=== PATIENT | male | born 1970 | race Two or more races ===

== ENCOUNTER 2025-05-17 20:01 | Inpatient (IN) | payer MEDICAID, SELFPAY ==
[2025-05-17 20:02] VITALS: BMI 21.9
[2025-05-17 20:43] VITALS: BP 108/72; PULSE 119; RESP 20; TEMP 36.8; O2SAT 97
--- NOTE | 2025-05-17 20:52 | XR_ITS ---
Examination: CT soft tissue neck, without contrast. 2-D sagittal reconstructions. 2-D coronal reconstructions. 3-D reconstructions. Date and time of exam: May 17, 2025, 2052 hours INDICATIONS: Redness swelling and pain on the back of the neck CTDI: vol (mGy): 13.50 DLP: (mGycm): 324 Technique: Multiple 1.25 mm axial sections of the marked soft tissue without contrast have been obtained. 2-D sagittal and coronal reconstructions have been obtained. 3-D reconstructions have been obtained. Low dose protocols were performed. One or more of the following dose reduction techniques were used; automated exposure control, adjustment of the mA and/or KV according to patient size, use of iterative reconstruction technique. Findings: Large area of soft tissue infection primarily in the subcutaneous fatty tissue posterior neck with adjacent skin thickening No fluid-filled drainable abscess Symmetrical nasopharynx oropharynx The larynx appears normal Epiglottis is not thickened No prevertebral soft tissue prominence IMPRESSION: Large area of soft tissue infection in the subcutaneous fatty tissue posterior neck with adjacent skin thickening No definite fluid-filled drainable abscess
--- NOTE | 2025-05-17 20:53 | XR_ITS ---
EXAMINATION: PA chest single view TECHNIQUE: Upright PA chest single view Date and time: May 17, 2025, 2055 hours INDICATIONS: Shortness of breath today. FINDINGS: Normal heart size The lungs are clear. The osseous structures are intact IMPRESSION: No active disease
[2025-05-17 21:40] LABS: Lactate (Lactic Acid) 1.8 mMol/L (0.4-2.0)
[2025-05-17 21:41] LABS: Basophils # (Auto) 0.2 Thou/mm3 (0.0-0.2); Basophils % (Auto) 1 % (0-2.5); Eosinophils # (Auto) 0.0 Thou/mm3 (0.0-0.5); Eosinophils % (Auto) 0 % (0-10); Hematocrit 45.5 % (41.0-53.0); Hemoglobin 16.0 g/dL (13.5-16.0); Immature Granulocytes Auto 0.44 Thou/mm3 (0.00-0.00); Lymphocytes # (Auto) 1.6 Thou/mm3 (1.0-4.8); Lymphocytes % (Auto) 6 % (10-50); Mean Corpuscular HGB Conc 35.2 g/dl (31.0-37.0); Mean Corpuscular Hemoglobin 31.6 pg (25.0-35.0); Mean Corpuscular Volume 90 fL (80-100); Monocytes # (Auto) 1.9 Thou/mm3 (0.0-0.8); Monocytes % (Auto) 7 % (0-12); Neutrophils # (Auto) 24.1 Thou/mm3 (1.8-7.7); Neutrophils % (Auto) 86 % (37-80); Nucleated Red Blood Cell # 0.00 Thou/mm3 (0.00-0.00); Nucleated Red Blood Cell % 0 /100 WBC (0); Platelet Count 536 Thou/mm3 (140-440); RDW Standard Deviation 38.1 fL (35.1-43.9); Red Blood Count 5.07 Miln/mm3 (4.50-5.90); White Blood Count 28.1 Thou/mm3 (3.8-10.6)
[2025-05-17 21:51] LABS: Glucose Estimated Average 349 mg/dL (80-131); Hemoglobin A1C 13.8 % Hgb (4.8-6.0)
[2025-05-17 22:22] LABS: Alanine Aminotransferase < 7 U/L (10-49); Albumin, Serum 3.9 gm/dL (3.5-5.0); Albumin/Globulin Ratio 1.2 (1.2-2.2); Alkaline Phosphatase 182 U/L (46-116); Anion Gap 10 (7-16); Aspartate Amino Transferase 11 U/L (0-34); BUN/Creatinine Ratio 10 Ratio (12-20); Bilirubin,Total 0.2 mg/dL (0.3-1.2); Blood Urea Nitrogen 11 mg/dL (9-23); Calcium 9.4 mg/dL (8.3-10.6); Calcium (Corrected) 9.5 mg/dL (8.5-10.1); Carbon Dioxide 29.0 mMol/L (20.0-31.0); Chloride 87 mMol/L (98-107); Creatine Kinase 45 U/L (34-171); Creatinine (Component) 1.1 mg/dL (0.6-1.3); Estimated Creatinine Clearance 68.2 mL/min (>60); Globulin 3.3 gm/dL (2.3-3.5); Magnesium 1.9 mg/dL (1.6-2.6); Potassium 4.2 mMol/L (3.4-5.1); Procalcitonin 0.32 ng/ml (0.0-0.49); Sodium 126 mMol/L (136-145); Thyroid Stimulating Hormone 0.86 uIU/mL (0.55-4.78); Total Protein 7.2 gm/dL (5.7-8.2); eGFR > 60 See Note
[2025-05-17 22:24] LABS: Alcohol, Blood Medical < 3.0 mg/dL (0-10.0); Bilirubin,Direct < 0.1 mg/dL (0.0-0.3); C-Reactive Protein 21.9 mg/dL (0.0-0.9); Osmolality,Calculated 276 (275-295)
[2025-05-17 22:25] LABS: Glucose 523 mg/dL (74-106)
[2025-05-17 22:31] LABS: Sed Rate (ESR) 56 mm/hr (0-20)
[2025-05-17 22:41] LABS: Collection Type, Urine Clean Catch
[2025-05-17 22:53] LABS: Amphetamine/Methamp Scrn,U Positive (Negative); Barbiturate Screen,Urine Negative (Negative); Benzodiazepines Screen,Urine Negative (Negative); Benzoylecgonine Screen, Ur Negative (Negative); Fentanyl Screen,Urine Negative (Negative); Opiate Screen,Urine Negative (Negative); THC Screen,Urine Negative (Negative)
[2025-05-17 22:58] LABS: Bilirubin,Urine Negative (Negative); Blood,Urine Trace (Negative); Clarity,Urine Clear (Clear/Hazy); Color,Urine Colorless (Lt Yel-Yel); Culture Indicated,Urine Not Indicated; Glucose, Urine 4+ (Negative); Ketones,Urine 1+ (Negative); Leukocyte Esterase,Urine Negative (Negative); Nitrite,Urine Negative (Negative); PH,Urine 6.0 (5.0-7.0); Protein,Urine 1+ (Neg - Trace); RBC,Urine 2 /hpf (0-3); Specific Gravity,Urine 1.030 (1.001-1.035); Squamous Epithelial Cell,Urine < 1 /hpf (0-5); Urobilinogen,Urine Negative mg/dL (0.0-1.0); WBC,Urine 1 /hpf (0-5)
[2025-05-17 23:13] LABS: Base Excess, Venous 4 (-3-3); O2 Saturation, Venous 49 % (96-97); PCO2, Venous 54 mmHg (36-56); PO2, Venous 27 mmHg (15-58); pH, Venous 7.37 (7.33-7.66)
[2025-05-17 23:20] LABS: Beta Hydroxybutyrate 1.5 mmol/L (<0.6)
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
[2025-05-18] VITALS (12 sets, daily range): BP systolic 99–139; BP diastolic 52–82; PULSE 104–120; RESP 12–20; TEMP 36.4–38.6; O2SAT 95–99
[2025-05-18] MEDS: INSULIN HUM REGULAR 1 UNIT/0.01 ML (PER UNIT) 6 UNIT IV (00:30)
[2025-05-18] MEDS: CEFEPIME INJ 2 GM in SODIUM CHLORIDE 0.9% (Popper) 50 ML IV (00:32)
[2025-05-18] MEDS: SODIUM CHLORIDE 0.9% 1000 ML 1,000 ML 999 ML IV (00:33)
[2025-05-18] MEDS: Vancomycin Inj 2,000 MG in SODIUM CHLORIDE 0.9% 500 ML 500 ML 150 MG IV (01:33)
--- NOTE | 2025-05-18 01:34 | XR_ITS ---
Examination: CT brain, without contrast. CT brain with intravenous contrast 2-D sagittal reconstructions. 2-D coronal reconstructions. 3-D reconstructions. Date and time of exam: May 18, 2025, 0523 hours INDICATIONS: Headaches neck pain beginning 5 days ago CTDI: vol (mGy): 107.1 DLP: (mGycm): 2068 Technique: Multiple 1.25 mm axial sections of the head brain have been obtained., Pre and post 50 cc [id number] 2-D sagittal and coronal reconstructions have been obtained. 3-D reconstructions have been obtained. Low dose protocols were performed. One or more of the following dose reduction techniques were used; automated exposure control, adjustment of the mA and/or KV according to patient size, use of iterative reconstruction technique. Findings: Ventricles are normal in size and configuration. No mass effect upon the ventricular system No abnormal enhancing cerebellar or cerebral lesions With contrast, the infectious mass in the posterior neck is depicted with 4.2 x 1.4 cm abscess, marked skin thickening IMPRESSION: Negative for acute hemorrhage mass effect or midline shift Partial visualization posterior soft tissue neck abscess
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
--- NOTE | 2025-05-18 01:52 | XR_ITS ---
Examination: CT soft tissue neck, with intravenous contrast. 2-D coronal reconstructions. 2-D sagittal reconstructions. Date and time of exam : May 18, 2025, 0523 hours INDICATIONS: Posterior neck redness swelling and pain this week. CTDI: vol (mGy): 11.8 DLP: (mGycm): 280 Technique: 1.25 mm axial sections of the neck of the obtained. Coronal and sagittal reconstructions have been obtained. Intravenous contrast administered 50 cc Isovue-370. Low dose protocols were performed. One or more of the following dose reduction techniques were used; automated exposure control, adjustment of the mA and/or KV according to patient size, use of iterative reconstruction technique. Findings: 4 x 7.5 x 4.0 cm enhancing abscess in the soft tissue posterior neck with adjacent skin thickening Lung apices clear Symmetrical thyroid lobes No oral pharyngeal or nasopharyngeal mass Normal epiglottis The larynx appears normal IMPRESSION: Abscess in the soft tissue posterior neck as above
[2025-05-18] MEDS: THIAMINE 100 MG TABLET PO ×3 (02:51→21:07)
[2025-05-18] MEDS: FOLIC ACID 1 MG TABLET PO ×3 (02:51→21:07)
[2025-05-18] MEDS: ACETAMINOPHEN 325 MG TABLET 650 MG PO ×2 (03:19→13:51)
[2025-05-18] MEDS: SODIUM CHLORIDE 0.9% 1000 ML 1,000 ML 125 ML IV ×3 (03:29→21:39)
[2025-05-18] MEDS: PIPER/TAZO INJ 4.5 GM in SODIUM CHLORIDE 0.9% (POP) 100 ML IV ×3 (04:53→21:51)
[2025-05-18 05:45] LABS: Basophils # (Auto) 0.1 Thou/mm3 (0.0-0.2); Basophils % (Auto) 1 % (0-2.5); Eosinophils # (Auto) 0.0 Thou/mm3 (0.0-0.5); Eosinophils % (Auto) 0 % (0-10); Hematocrit 42.7 % (41.0-53.0); Hemoglobin 14.9 g/dL (13.5-16.0); Immature Granulocytes Auto 0.49 Thou/mm3 (0.00-0.00); Lymphocytes # (Auto) 1.7 Thou/mm3 (1.0-4.8); Lymphocytes % (Auto) 6 % (10-50); Mean Corpuscular HGB Conc 34.9 g/dl (31.0-37.0); Mean Corpuscular Hemoglobin 31.9 pg (25.0-35.0); Mean Corpuscular Volume 91 fL (80-100); Monocytes # (Auto) 2.1 Thou/mm3 (0.0-0.8); Monocytes % (Auto) 7 % (0-12); Neutrophils # (Auto) 24.3 Thou/mm3 (1.8-7.7); Neutrophils % (Auto) 85 % (37-80); Nucleated Red Blood Cell # 0.00 Thou/mm3 (0.00-0.00); Nucleated Red Blood Cell % 0 /100 WBC (0); Platelet Count 484 Thou/mm3 (140-440); RDW Standard Deviation 39.5 fL (35.1-43.9); Red Blood Count 4.67 Miln/mm3 (4.50-5.90); White Blood Count 28.7 Thou/mm3 (3.8-10.6)
[2025-05-18 05:53] LABS: INR 1.0 (0.9-1.3); Partial Thromboplastin Time 28.9 Seconds (22.0-36.0); Prothrombin Time 10.7 Seconds (9.0-12.2)
--- NOTE | 2025-05-18 05:54 | PRELIM_ITS ---
CT scan of the head without and with intravenous contrast (axial sections with sagittal and coronal reformats) May 18, 2025 0523 hours Clinical History: posterior neck cellulitis with caudal extension Findings: No evidence of intracranial hemorrhage, mass effect or midline shift. The ventricles and CSF spaces are unremarkable. There is no abnormal enhancement on the postcontrast images. The calvarium is unremarkable. There is mild bilateral ethmoid mucosalthickening.The mastoid air cells and the other visualized paranasal sinuses are clear. Impression: No evidence of intracranial hemorrhage, mass effect, mass or abnormal enhancement. Please refer to the report on the neck CT submitted separately. Report Electronically Signed By: Georgia Chatterjee 05/18/2025 5:53:39 AM [EST]
--- NOTE | 2025-05-18 06:12 | PRELIM_ITS ---
CT scan of the neck with intravenous contrast (axial sections with sagittal and coronal reformats) May 18, 2025 0523 hours Clinical History: posterior neck cellulitis Findings: The nasopharynx, oropharynx, hypopharynx, supraglottic and infraglottic larynx, vocal cords and upper trachea are unremarkable. The epiglottis and aryepiglottic folds appear unremarkable. The vessels of the neck are well opacified. No filling defect is seen. There is a 3.8x8.4x6.4cm complex fluid collection with wall enhancement in the posterior upper neck with adjacent fat stranding and skin thickening. Degenerative changes are identified in the spine. 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 Impression: 3.8x8.4x6.4cm abscess in the posterior upper neck with adjacent cellulitis. Report Electronically Signed By: Georgia Chatterjee 05/18/2025 6:12:07 AM [EST]
[2025-05-18 06:25] LABS: Alanine Aminotransferase < 7 U/L (10-49); Albumin, Serum 3.4 gm/dL (3.5-5.0); Albumin/Globulin Ratio 1.2 (1.2-2.2); Alkaline Phosphatase 141 U/L (46-116); Anion Gap 14 (7-16); Aspartate Amino Transferase 11 U/L (0-34); BUN/Creatinine Ratio 16 Ratio (12-20); Bilirubin,Total 0.2 mg/dL (0.3-1.2); Blood Urea Nitrogen 11 mg/dL (9-23); Calcium 8.7 mg/dL (8.3-10.6); Calcium (Corrected) 9.2 mg/dL (8.5-10.1); Carbon Dioxide 25.3 mMol/L (20.0-31.0); Cardiac Risk Estimate 4.3 RATIO (4.0-6.7); Chloride 96 mMol/L (98-107); Cholesterol 197 mg/dL (132-200); Creatinine (Component) 0.7 mg/dL (0.6-1.3); Estimated Creatinine Clearance 107.1 mL/min (>60); Globulin 2.8 gm/dL (2.3-3.5); Glucose 263 mg/dL (74-106); HDL Cholesterol 46 mg/dL (40-60); LDL Cholesterol,Calculated 127 mg/dL (0-130); Magnesium 1.8 mg/dL (1.6-2.6); Osmolality,Calculated 278 (275-295); Phosphorous 3.3 mg/dL (2.4-5.1); Potassium 3.7 mMol/L (3.4-5.1); Sodium 135 mMol/L (136-145); Total Protein 6.2 gm/dL (5.7-8.2); Triglycerides 120 mg/dL (30-150); eGFR > 60 See Note
[2025-05-18] MEDS: HEPARIN SOD INJ 5000 UNIT/ML VIAL SC ×3 (06:27→21:39)
[2025-05-18] MEDS: MORPHINE SULF INJ 4 MG/ML VIAL 2 MG IVP (08:17)
[2025-05-18] MEDS: INSULIN LISPRO (AdmeLOG) 1 UNIT/0.01 ML UNIT SC ×3 (08:23→17:57)
[2025-05-18] MEDS: INSULIN DEGLUDEC 5 UNIT/0.05 ML (PER 5 UNITS) 10 UNIT SC (08:24)
--- NOTE | 2025-05-18 08:39 | PC.NURSE ---
Handoff report received from [place] RN, Pt found resting calmly in bed. He awaken easily and stated he was having pain to posterior neck, area is swollen with scant purulent drainage. He feels mostly comfortable in a right lateral position off of abcess area. Dr. Mohan here to see patient, dr pushed on area and he stated it was really hard and needs antibiotics at this time and later may consider I&D. Pt stated he also feels anxious, CIWA score was 12. Will continue to perform CIWA score Q4 hrs since patient stated that he does drink 5-6 24 oz beers a day.
[2025-05-18] MEDS: VANCOMYCIN/NS 1 GM IVPB 200 ML IV ×2 (10:46→21:11)
--- NOTE | 2025-05-18 11:13 | ESPR_ITS ---
<Statement entered by Dominic Berrios MD - 05/21/25 17:19> I reviewed above note and agree with findings and plans. I have also personally examined the patient with medicine team and went over assessment and plan with medical team including internal revenue agent and resident physician. <Statement entered by Ena Mcdaniel MD - 05/18/25 14:46> 54-year-old male with past medical history of diabetes, hypertension, polysubstance abuse including IVDU presents to ED with chief complaint of swelling and pain over the back of his neck for the past 1 week. Patient was admitted for cellulitis/abscess of the neck requiring surgical intervention and IV antibiotics. Apparently patient in the past has history of birdcage falling on his neck which resulted in an abscess, which resolved on its own with nonoperative treatment with warm soaks. However this time upon presentation imaging revealed 4X7.5X 4 cm enhancing abscess in the soft tissue posterior lower neck. Surgery was consulted, evaluated the patient and recommended for now conservative management with IV antibiotics, and surgery will continue to reassess the patient admitted for I&D. Otherwise patient is hemodynamically stable, continue management with wound care, broad-spectrum antibiotics, follow-up w/ culture, keep area clean and dry. Control blood sugar. And will follow-up with further recs from surgery I discussed with and supervised the internal revenue agent physician who took care of this patient. I personally saw and examined the patient and discussed the assessment and plan with the entire medicine team, including my attending , I agree with the assessment and plan as documented below Ena Mcdaniel M.D. PGY-3 Disclaimer: Despite multiple revisions, due to the dictation software being used, the document bellow may not be free of grammatical errors including phonetic/typographic errors. However, this does not deter from our commitment to providing health care in the patient's best interest in mind. Documentation for date of: 05/18/25 Subjective Subjective Interval history: Patient was seen at the bedside with no acute events overnight. He denies any chest pain, shortness of breath, abdominal pain, nausea, vomiting, or dizziness. Vital signs and labs were reviewed; the WBC remains elevated at 28.7, so cefepime and vancomycin are being continued. The patient reports that a birdcage fell on his neck four days ago, resulting in an abscess. Imaging revealed a 4x7.5x4 cm enhancing abscess in the soft tissue of the posterior lower neck. Surgery was consulted, evaluated the patient, and recommended conservative management with IV antibiotics for now. Surgery will continue to reassess the patient for potential I&D. Otherwise, the patient is hemodynamically stable, and management will continue with wound care, broad-spectrum antibiotics, culture follow-up, and efforts to keep the area clean and dry. Blood sugar will be controlled, and further recommendations from surgery will be followed up. Exam Vital Signs Temp Pulse Resp BP Pulse Ox O2 Del Method 98.5 F 107 H 12 110/70 97 Room Air 05/18/25 08:00 05/18/25 08:00 05/18/25 08:00 05/18/25 08:00 05/18/25 08:00 05/18/25 08:00 Narrative Exam General: No acute distress, well nourished, lying in left side Eye: PERRL, EOMI, normal conjunctiva, no scleral icterus HENT: Normocephalic, atraumatic, normal hearing, moist oral mucosa Neck: Supple, non-tender, no JVD, no lymphadenopathy Lungs: Clear to auscultation bilaterally, non-labored respirations, symmetric chest rise, no use of accessory muscles Heart: Normal S1 and S2, no S3 or S4 appreciated. Normal rate and regular rhythm, no murmurs, rubs gallops. Abdomen: Soft, non-tender, non-distended, normal bowel sounds. Musculoskeletal: Limited ROM of neck 2/2 pain, otherwise full ROM Skin: Large area of erythema, edema, and skin discoloration that spans the length of the posterior neck with a central open wound draining foul-smelling pus. Well-healed scars on left shoulder and right arm. No foot wounds appreciated. Neurologic: Alert, awake and oriented x3. CN II-XII grossly intact. No focal neuro deficits. No signs of meningeal irritation noted. Psychiatric: Cooperative, appropriate mood and affect Objective Labs 05/18/25 04:51 05/18/25 04:51 Labs: Laboratory Results - last 24 hr 05/17/25 05/17/25 05/17/25 21:14 22:30 22:54 WBC 28.1 H RBC 5.07 Hgb 16.0 Hct 45.5 MCV 90 MCH 31.6 MCHC 35.2 RDW Std Deviation 38.1 Plt Count 536 H Neut % (Auto) 86 H Lymph % (Auto) 6 L [place] % (Auto) 7 Eos % (Auto) 0 Baso % (Auto) 1 Neut # (Auto) 24.1 H Lymph # (Auto) 1.6 Stearns # (Auto) 1.9 H Eos # (Auto) 0.0 Baso # (Auto) 0.2 Immature Gran # (Auto) 0.44 H Absolute Nucleated RBC 0.00 Immature Gran % 2 H Nucleated RBC % 0 ESR 56 H PT INR APTT VBG pH 7.37 VBG pCO2 54 VBG pO2 27 VBG O2 Sat (Miko) 49 L VBG Base Excess 4 H Sodium 126 L Potassium 4.2 Chloride 87 L Carbon Dioxide 29.0 Anion Gap 10 BUN 11 Creatinine 1.1 Estim Creat Clear Calc 68.2 eGFR > 60 BUN/Creatinine Ratio 10 L Glucose 523 H* Estimated Ave Glu mg/dL 349 H Hemoglobin A1c 13.8 H Calculated Osmolality 276 Lactic Acid 1.8 Calcium 9.4 Corrected Calcium 9.5 Phosphorus Magnesium 1.9 Total Bilirubin 0.2 L Direct Bilirubin < 0.1 AST 11 ALT < 7 L Alkaline Phosphatase 182 H Total Creatine Kinase 45 C-Reactive Prot, Quant 21.9 H Total Protein 7.2 Albumin 3.9 Globulin 3.3 Albumin/Globulin Ratio 1.2 Triglycerides Cholesterol LDL Cholesterol, Calc HDL Cholesterol Cholesterol/HDL Ratio Beta-Hydroxybutyrate/Acetoacetate 1.5 H Procalcitonin 0.32 TSH 0.86 Ur Collection Type Clean Catch Urine Color Colorless A Urine Clarity Clear Urine pH 6.0 Ur Specific [place] 1.030 Urine Protein 1+ A Urine Glucose (UA) 4+ A Urine Ketones 1+ A Urine Blood Trace Urine Nitrite Negative Urine Bilirubin Negative Urine Urobilinogen (Auto) Negative Ur Leukocyte Esterase Negative Urine RBC 2 Urine WBC 1 Ur Squamous Epith Cells < 1 Urine Bacteria None Ur Culture Indicated? Not Indicated Urine Opiates Screen Negative Urine Fentanyl Screen Negative Ur Barbiturates Screen Negative U Amphetamin/Meth Scrn Positive A U Benzodiazepines Scrn Negative U Cocaine Metab Screen Negative U Marijuana (THC) Screen Negative Ethyl Alcohol < 3.0 05/18/25 04:51 WBC 28.7 H RBC 4.67 Hgb 14.9 Hct 42.7 MCV 91 MCH 31.9 MCHC 34.9 RDW Std Deviation 39.5 Plt Count 484 H D Neut % (Auto) 85 H Lymph % (Auto) 6 L [place] % (Auto) 7 Eos % (Auto) 0 Baso % (Auto) 1 Neut # (Auto) 24.3 H Lymph # (Auto) 1.7 [place]s # (Auto) 2.1 H Eos # (Auto) 0.0 Baso # (Auto) 0.1 Immature Gran # (Auto) 0.49 H Absolute Nucleated RBC 0.00 Immature Gran % 2 H Nucleated RBC % 0 ESR PT 10.7 INR 1.0 APTT 28.9 VBG pH VBG pCO2 VBG pO2 VBG O2 Sat (Miko) VBG Base Excess Sodium 135 L Potassium 3.7 D Chloride 96 L Carbon Dioxide 25.3 Anion Gap 14 BUN 11 Creatinine 0.7 Estim Creat Clear Calc 107.1 eGFR > 60 BUN/Creatinine Ratio 16 [address]ucose [address] Glu mg/dL Hemoglobin A1c Calculated Osmolality 278 Lactic Acid Calcium 8.7 Corrected Calcium 9.2 Phosphorus 3.3 Magnesium 1.8 Total Bilirubin 0.2 L Direct Bilirubin AST 11 ALT < 7 L Alkaline Phosphatase 141 H D Total Creatine Kinase C-Reactive Prot, Quant Total Protein 6.2 Albumin 3.4 L D Globulin 2.8 Albumin/Globulin Ratio 1.2 Triglycerides 120 Cholesterol 197 LDL Cholesterol, Calc 127 HDL Cholesterol 46 Cholesterol/HDL Ratio 4.3 Beta-Hydroxybutyrate/Acetoacetate Procalcitonin TSH Ur Collection Type Urine Color Urine Clarity Urine pH Ur Specific [place] Urine Protein Urine Glucose (UA) Urine Ketones Urine Blood Urine Nitrite Urine Bilirubin Urine Urobilinogen (Auto) Ur Leukocyte Esterase Urine RBC Urine WBC Ur Squamous Epith Cells Urine Bacteria Ur Culture Indicated? Urine Opiates Screen Urine Fentanyl Screen Ur Barbiturates Screen U Amphetamin/Meth Scrn U Benzodiazepines Scrn U Cocaine Metab Screen U Marijuana (THC) Screen Ethyl Alcohol ABG Interpretation ABG results: 05/17/25 22:54 VBG pH 7.37 VBG pCO2 54 VBG pO2 27 VBG Base Excess 4 H Quality Measures Quality Measures none Assessment & Plan Assessment Current Active Medications: Generic Name Dose Route Start Last Admin Trade Name Freq PRN Reason Stop Dose Admin Acetaminophen 650 mg 05/18/25 01:29 Acetaminophen 325 Mg Tablet PO 06/17/25 01:28 Q6H PRN Fever >100.3 Acetaminophen 650 mg 05/18/25 01:29 05/18/25 03:19 Acetaminophen 325 Mg Tablet PO 06/17/25 01:28 650 mg Q6H PRN Administration PAIN SCALE 1-3 (mild Chlordiazepoxide HCl 25 mg 05/18/25 01:57 Chlordiazepoxide Hcl 25 Mg Capsule PO 05/19/25 01:56 Q4HR PRN CIWA 8-13 Chlordiazepoxide HCl 50 mg 05/18/25 01:57 Chlordiazepoxide Hcl 25 Mg Capsule PO 05/19/25 01:56 Q4HR PRN CIWA 14-20 Dextrose 25 ml 05/18/25 01:34 Dextrose 50%-Water Inj 50 Ml Syringe IV 06/17/25 01:33 Q15MIN PRN BG 50-70 responsive npo pt Dextrose 50 ml 05/18/25 01:34 Dextrose 50%-Water Inj 50 Ml Syringe IV 06/17/25 01:33 Q15MIN PRN BG <50 OR BG <70 & pt unresponsive Docusate Sodium 100 mg 05/18/25 02:27 Docusate Sod 100 Mg Capsule PO 06/17/25 02:26 QDAY PRN CONSTIPATION Protocol Folic Acid 1 mg 05/18/25 02:00 05/18/25 08:25 Folic Acid 1 Mg Tablet PO 05/23/25 01:59 1 mg BID SOLOMON Administration Glucagon 1 mg 05/18/25 01:34 Glucagon Inj 1 Mg Vial IM Q15MIN PRN BG <70, and no IV access Heparin Sodium (Porcine) 5,000 unit 05/18/25 06:00 05/18/25 06:27 Heparin Sod Inj 5000 Unit/Ml Vial SC 06/01/25 05:59 5,000 unit Q8HR SOLOMON Administration Sodium Chloride 1,000 mls @ 125 mls/hr 05/18/25 01:30 05/18/25 08:25 Ns IV 06/17/25 01:29 Not Given .Q8H SOLOMON Piperacillin Sod/Tazobactam 100 mls @ 25 mls/hr 05/18/25 14:00 Sod 4.5 gm/ Sodium Chloride IV 05/25/25 13:59 Q8HR SOLOMON Protocol Vancomycin/Sodium Chloride 200 mls @ 120 mls/hr 05/18/25 22:00 Vancomycin/Ns 1 Gm Ivpb IV 05/25/25 21:59 Q12H SOLOMON Vancomycin/Sodium Chloride 200 mls @ 120 mls/hr 05/18/25 10:00 05/18/25 10:46 Vancomycin/Ns 1 Gm Ivpb IV 05/18/25 11:39 120 mls/hr X1 ONE Administration Insulin Degludec 10 unit 05/18/25 09:00 05/18/25 08:24 Insulin Degludec 5 Unit/0.05 Ml (Per 5 Units) SC 06/17/25 08:59 10 unit QDAY SOLOMON Administration Insulin Human Lispro 0 unit 05/18/25 07:30 05/18/25 08:23 Insulin Lispro (Admelog) 1 Unit/0.01 Ml Unit SC 06/17/25 07:29 4 unit AC COUNT INCLUDES THE [facility] Administration Protocol Morphine Sulfate 2 mg 05/18/25 01:40 05/18/25 08:17 Morphine Sulf Inj 4 Mg/Ml Vial IVP 05/23/25 01:39 2 mg Q6HR PRN Administration pain 4-8 Ondansetron HCl 4 mg 05/18/25 01:29 Ondansetron Inj 2 Mg/Ml Inj 2 Ml IVP 06/17/25 01:28 Q6H PRN NAUSEA OR VOMITING Protocol Pharmacy Consult 1 each 05/18/25 09:00 Vancomycin Pharmacy To Dose 1 Each Each IV 06/17/25 08:59 QDAY PRN PROTOCOL Thiamine HCl 100 mg 05/18/25 02:00 05/18/25 08:25 Thiamine 100 Mg Tablet PO 05/23/25 01:59 100 mg BID COUNT INCLUDES THE [facility] Administration Plan 54 y/o male with PMH polysubstance use disorder (IVDU, EtOH, opioids, methamphetamine, cocaine), HTN, uncontrolled T2DM and previous cellulitis/abscess who presents to the ED on 05/18 with an open sore on the posterior neck draining pus. Admitted for posterior neck cellulitis and hyperglycemia without acidosis. #Posterior neck cellulitis Hx uncontrolled T2DM, IVDU Patient was scratching neck when he noticed a bump, progressively got larger and starting draining pus over the course of 4 days Large area of erythema, edema, and skin discoloration that spans the length of the posterior neck with a central open wound draining foul-smelling pus on physical exam Afebrile, WBC 28.1 CT soft tissue neck w/o showed large area of soft tissue infection primarily in subcutaneous fatty tissue posterior neck with adjacent skin thickening, no fluid filled drainable abscess. Given cefepime 2g IV, vancomycin 2g IV in ED Plan: - Gen surgery (Dr. Mohan) consulted, appreciate recs - Vancomycin IV, Zosyn IV for polymicrobial coverage given hx T2DM (uncontrolled), IVDU) - Pending blood cx - Wound care #Polysubstance use disorder Hx IVDU, EtOH, opioids, methamphetamine, cocaine, c/b multiple cellulitis/abscess at site of injection Went on [place]erguson with EtOH and methamephetamines recently, last use 4 days ago. AOx4, pt was very honest about his polysubstance use Plan: - Encouraged cessation - CIWA with Librium - Thiamine 100 mg PO BID - Folate 1 mg PO BID #Uncontrolled T2DM, insulin dependent Glucose 523 -> 263, BHB 1.5. 1+ ketosis in UA. pH 7.37/CO2 54 on VBG (no acidosis). Does not meet criteria for HHS or DKA. K 4.2. Lactic WNL A1C 13.8 Home med: Metformin, insulin - has not taken meds in ~1 year Given 6U Regular insulin, 1L NS in ED Plan: - SSI ACHS - Degludec 10u qD - Carb consistent diet - NS 125 mL/hr maintenance fluids - CTM K with daily CMP #Thrombocytosis, resolving Most likely reactive Plan: - CTM with daily CBC #Hx hypertension BP 108/72, HR 119 Plan: - CTM with tele #Hyponatremia, resolved Health Maintenance Dispo: Tele Diet: carb consistent VTE ppx: hepain subQ GI ppx: n/a Code status: full Case discussed with my attending Dr. Berrios, and senior resident, Dr. Violeta Ramsay MD PGY-1
--- NOTE | 2025-05-18 12:27 | PD.SURCONS ---
HPI Consult details Consult date: 05/18/25 Reason for consultation narrative: Patient was seen in consultation because of an abscess over the posterior neck History of present illness: History of present illness revealed that the patient has had this swelling over the back of the neck for the past 1 week. Recently it started draining. Past medical history revealed that he has had a history of birdcage falling on his neck which resulted in an abscess which resolved on its own with nonoperative treatment with warm soaks. Patient also has a drug user and diabetic and hypertensive. Patient has had a previous abscess drained of the left shoulder in [place]. His primary care physician is [place] but the patient lives here. Past Medical History Past Medical History CARDIAC: Negative Cardiac Disorders or Congestive Heart Failure RESPIRATORY: Negative Chronic Obstructive Pulmonary Disease (COPD) or Asthma GENITOURINARY: Negative Renal Disease ENDOCRINE: Positive Diabetes Mellitus Type 2; Negative Diabetes Mellitus Type 1 HEMATOLOGIC: Negative Sickle Cell Disease PSYCHO/SOCIAL: Positive Recreational Drug Use Social History SMOKING STATUS: Light (< 1 pack/day) Meds Home Medications and Allergies Home Medications ?Medication ?Instructions ?Recorded ?Confirmed ?Type Metformin Hcl 500 mg PO BID ##0 06/07/12 History aspirin 81 mg tablet 81 mg PO DAILY ##0 06/07/12 History Allergies Allergy/AdvReac Type Severity Reaction Status Date / Time NKA* Allergy Uncoded 05/18/25 08:22 Exam Vital Signs Temp Pulse Resp BP Pulse Ox O2 Del Method 99.1 F 112 H 20 132/73 H 97 Room Air 05/18/25 11:20 05/18/25 11:20 05/18/25 11:20 05/18/25 11:20 05/18/25 11:20 05/18/25 11:20 Narrative Exam Physical examination revealed a white male who is 5 foot 7 inches tall weighing 140 pounds Routine Neck Exam Comments: Examination of the neck showed very hard mass with some follicles suggesting a carbuncle. It is not fluctuant upon compression 1 or 2 drops of pus came through the one of the openings Results Results: Laboratory Laboratory Narrative: Patient's laboratory workup shows WBC of 28,000 and his glucose was more than 500 and hemoglobin A1c which is more than 30 Results: Imaging Imaging narrative: CT scan showed chronic abscess with pus at the back of the neck Assessment & Plan Additional Assessment Additional comments: Pression: Carbuncle back of the neck Poorly controlled diabetes mellitus Drug abuse Hypertension Hyponatremia Plan Plan: Patient will require IV antibiotics and control of the diabetes. We want to wait for the hard area to become soft and fluctuate before attempting drainage. Thank you very much
--- NOTE | 2025-05-18 12:48 | PC.NURSE ---
Hand off report given to Nannette CATHERINE. Pt alert and oriented, continues to c/o pain to posterior neck where abcess has formed. Shaun JAVED is planning I&D but waiting for antibiotics to soften area first.
[2025-05-18 18:47] LABS: Lactate (Lactic Acid) 2.1 mMol/L (0.4-2.0)
[2025-05-18 21:46] LABS: Reflex Lactate? Y
[2025-05-18 22:53] LABS: Lactic Acid, 3 HR 1.7 mMol/L (0.4-2.0)
[2025-05-19] VITALS: BP 115/62; PULSE 108; RESP 17; TEMP 36.1; O2SAT 97
[2025-05-19 04:00] VITALS: BP 128/71; PULSE 105; RESP 16; TEMP 36.6; O2SAT 98
[2025-05-19] MEDS: HEPARIN SOD INJ 5000 UNIT/ML VIAL SC ×3 (05:18→21:54)
[2025-05-19] MEDS: PIPER/TAZO INJ 4.5 GM in SODIUM CHLORIDE 0.9% (POP) 100 ML IV ×3 (05:18→22:14)
[2025-05-19 06:42] LABS: Basophils # (Auto) 0.1 Thou/mm3 (0.0-0.2); Basophils % (Auto) 0 % (0-2.5); Eosinophils # (Auto) 0.4 Thou/mm3 (0.0-0.5); Eosinophils % (Auto) 2 % (0-10); Hematocrit 41.5 % (41.0-53.0); Hemoglobin 14.4 g/dL (13.5-16.0); Immature Granulocytes Auto 0.39 Thou/mm3 (0.00-0.00); Lymphocytes # (Auto) 1.3 Thou/mm3 (1.0-4.8); Lymphocytes % (Auto) 5 % (10-50); Mean Corpuscular HGB Conc 34.7 g/dl (31.0-37.0); Mean Corpuscular Hemoglobin 31.7 pg (25.0-35.0); Mean Corpuscular Volume 91 fL (80-100); Monocytes # (Auto) 1.2 Thou/mm3 (0.0-0.8); Monocytes % (Auto) 4 % (0-12); Neutrophils # (Auto) 24.0 Thou/mm3 (1.8-7.7); Neutrophils % (Auto) 88 % (37-80); Nucleated Red Blood Cell # 0.00 Thou/mm3 (0.00-0.00); Nucleated Red Blood Cell % 0 /100 WBC (0); Platelet Count 483 Thou/mm3 (140-440); RDW Standard Deviation 39.8 fL (35.1-43.9); Red Blood Count 4.54 Miln/mm3 (4.50-5.90); White Blood Count 27.4 Thou/mm3 (3.8-10.6)
[2025-05-19 06:59] LABS: Partial Thromboplastin Time 25.4 Seconds (22.0-36.0)
[2025-05-19 07:14] LABS: Alanine Aminotransferase < 7 U/L (10-49); Albumin, Serum 3.1 gm/dL (3.5-5.0); Albumin/Globulin Ratio 1.2 (1.2-2.2); Alkaline Phosphatase 129 U/L (46-116); Anion Gap 9 (7-16); Aspartate Amino Transferase 12 U/L (0-34); BUN/Creatinine Ratio 13 Ratio (12-20); Bilirubin,Total 0.2 mg/dL (0.3-1.2); Blood Urea Nitrogen 8 mg/dL (9-23); Calcium 8.3 mg/dL (8.3-10.6); Calcium (Corrected) 9.0 mg/dL (8.5-10.1); Carbon Dioxide 26.8 mMol/L (20.0-31.0); Chloride 99 mMol/L (98-107); Creatinine (Component) 0.6 mg/dL (0.6-1.3); Estimated Creatinine Clearance 121.7 mL/min (>60); Globulin 2.5 gm/dL (2.3-3.5); Glucose 208 mg/dL (74-106); Magnesium 1.7 mg/dL (1.6-2.6); Osmolality,Calculated 274 (275-295); Phosphorous 2.5 mg/dL (2.4-5.1); Potassium 3.5 mMol/L (3.4-5.1); Sodium 135 mMol/L (136-145); Total Protein 5.6 gm/dL (5.7-8.2); eGFR > 60 See Note
[2025-05-19 08:00] VITALS: BP 92/69; PULSE 102; PULSE 109; RESP 15; TEMP 36.4; O2SAT 96
[2025-05-19] MEDS: INSULIN LISPRO (AdmeLOG) 1 UNIT/0.01 ML UNIT SC ×3 (08:09→17:28)
[2025-05-19] MEDS: THIAMINE 100 MG TABLET PO ×2 (08:10→20:18)
[2025-05-19] MEDS: INSULIN DEGLUDEC 5 UNIT/0.05 ML (PER 5 UNITS) 12 UNIT SC (08:10)
[2025-05-19] MEDS: FOLIC ACID 1 MG TABLET PO ×2 (08:10→20:18)
--- NOTE | 2025-05-19 09:29 | PC.SS ---
Follow up note: On IV antibiotic.
[2025-05-19] MEDS: SODIUM CHLORIDE 0.9% 1000 ML 1,000 ML 125 ML IV (09:42)
[2025-05-19 09:51] LABS: Vancomycin,Trough 7.4 mcg/mL (5.0-10.0)
[2025-05-19] MEDS: VANCOMYCIN/NS 1 GM IVPB 200 ML IV ×3 (09:57→21:54)
--- NOTE | 2025-05-19 11:39 | ESPR_ITS ---
<Statement entered by Dominic Berrios MD - 05/24/25 08:34> I reviewed above note and agree with findings and plans. I have also personally examined the patient with medicine team and went over assessment and plan with medical team including manager of internal and resident physician. <Statement entered by Steve Wolf MD - 05/19/25 16:19> Patient seen and assessed in hospital bed denies having any concerning symptoms at this time. On examination, patient's neck abscess is slightly softer but still fluctuant and hard on palpation. General surgery recommends continuing IV Vanco and Zosyn. Blood cultures are still pending but at this time there is no plan for I&D. Will continue monitoring the patient and follow-up with general surgery recommendations. I have personally seen and examined the patient. I agree with the resident's assessment and plan as documented below. Steve Wolf DO PGY-2 Internal Medicine - [facility] Documentation for date of: 05/19/25 Subjective Subjective Interval history: Patient was seen at the bedside with no acute events overnight. He denies any chest pain, shortness of breath, abdominal pain, nausea, vomiting, or dizziness. Vital signs and labs were reviewed; the WBC remains elevated, so vancomycin and zosyn are being continued. Surgery recommended conservative management with IV antibiotics for now. Surgery will continue to reassess the patient for potential I&D. Otherwise, the patient is hemodynamically stable, and management will continue with wound care, broad-spectrum antibiotics, culture follow-up, and efforts to keep the area clean and dry. Blood sugar will be controlled, and further recommendations from surgery will be followed up. Exam Vital Signs Temp Pulse Resp BP Pulse Ox O2 Del Method 97.6 F 102 H 15 92/69 96 Room Air 05/19/25 08:00 05/19/25 08:00 05/19/25 08:00 05/19/25 08:00 05/19/25 08:00 05/19/25 08:00 Narrative Exam General: No acute distress, well nourished, lying in left side Eye: PERRL, EOMI, normal conjunctiva, no scleral icterus HENT: Normocephalic, atraumatic, normal hearing, moist oral mucosa Neck: Supple, non-tender, no JVD, no lymphadenopathy Lungs: Clear to auscultation bilaterally, non-labored respirations, symmetric chest rise, no use of accessory muscles Heart: Normal S1 and S2, no S3 or S4 appreciated. Normal rate and regular rhythm, no murmurs, rubs gallops. Abdomen: Soft, non-tender, non-distended, normal bowel sounds. Musculoskeletal: Limited ROM of neck 2/2 pain, otherwise full ROM Skin: Large area of erythema, edema, and skin discoloration that spans the length of the posterior neck with a central open wound draining foul-smelling pus. Well-healed scars on left shoulder and right arm. No foot wounds appreciated. Neurologic: Alert, awake and oriented x3. CN II-XII grossly intact. No focal neuro deficits. No signs of meningeal irritation noted. Psychiatric: Cooperative, appropriate mood and affect Objective Labs 05/19/25 05:54 05/19/25 05:54 Labs: Laboratory Results - last 24 hr 05/18/25 05/18/25 05/19/25 18:45 22:47 05:54 WBC 27.4 H RBC 4.54 Hgb 14.4 Hct 41.5 MCV 91 MCH 31.7 MCHC 34.7 RDW Std Deviation 39.8 Plt Count 483 H Neut % (Auto) 88 H Lymph % (Auto) 5 L Mccreary % (Auto) 4 Eos % (Auto) 2 Baso % (Auto) 0 Neut # (Auto) 24.0 H Lymph # (Auto) 1.3 Mccreary # (Auto) 1.2 H Eos # (Auto) 0.4 Baso # (Auto) 0.1 Immature Gran # (Auto) 0.39 H Absolute Nucleated RBC 0.00 Immature Gran % 1 H Nucleated RBC % 0 APTT 25.4 Sodium 135 L Potassium 3.5 Chloride 99 Carbon Dioxide 26.8 Anion Gap 9 BUN 8 L Creatinine 0.6 Estim Creat Clear Calc 121.7 eGFR > 60 BUN/Creatinine Ratio 13 Glucose 208 H D Calculated Osmolality 274 L Lactic Acid 2.1 H 1.7 Calcium 8.3 Corrected Calcium 9.0 Phosphorus 2.5 Magnesium 1.7 Total Bilirubin 0.2 L AST 12 ALT < 7 L Alkaline Phosphatase 129 H Total Protein 5.6 L Albumin 3.1 L Globulin 2.5 Albumin/Globulin Ratio 1.2 Vancomycin Trough 05/19/25 09:04 WBC RBC Hgb Hct MCV MCH MCHC RDW Std Deviation Plt Count Neut % (Auto) Lymph % (Auto) Mccreary % (Auto) Eos % (Auto) Baso % (Auto) Neut # (Auto) Lymph # (Auto) Mccreary # (Auto) Eos # (Auto) Baso # (Auto) Immature Gran # (Auto) Absolute Nucleated RBC Immature Gran % Nucleated RBC % APTT Sodium Potassium Chloride Carbon Dioxide Anion Gap BUN Creatinine Estim Creat Clear Calc eGFR BUN/Creatinine Ratio Glucose Calculated Osmolality Lactic Acid Calcium Corrected Calcium Phosphorus Magnesium Total Bilirubin AST ALT Alkaline Phosphatase Total Protein Albumin Globulin Albumin/Globulin Ratio Vancomycin Trough 7.4 ABG Interpretation ABG results: 05/17/25 22:54 VBG pH 7.37 VBG pCO2 54 VBG pO2 27 VBG Base Excess 4 H Quality Measures Quality Measures none Assessment & Plan Assessment Current Active Medications: Generic Name Dose Route Start Last Admin Trade Name Freq PRN Reason Stop Dose Admin Acetaminophen 650 mg 05/18/25 01:29 05/18/25 13:51 Acetaminophen 325 Mg Tablet PO 06/17/25 01:28 650 mg Q6H PRN Administration Fever >100.3 Acetaminophen 650 mg 05/18/25 01:29 05/18/25 03:19 Acetaminophen 325 Mg Tablet PO 06/17/25 01:28 650 mg Q6H PRN Administration PAIN SCALE 1-3 (mild Dextrose 25 ml 05/18/25 01:34 Dextrose 50%-Water Inj 50 Ml Syringe IV 06/17/25 01:33 Q15MIN PRN BG 50-70 responsive npo pt Dextrose 50 ml 05/18/25 01:34 Dextrose 50%-Water Inj 50 Ml Syringe IV 06/17/25 01:33 Q15MIN PRN BG <50 OR BG <70 & pt unresponsive Docusate Sodium 100 mg 05/18/25 02:27 Docusate Sod 100 Mg Capsule PO 06/17/25 02:26 QDAY PRN CONSTIPATION Protocol Folic Acid 1 mg 05/18/25 02:00 05/19/25 08:10 Folic Acid 1 Mg Tablet PO 05/23/25 01:59 1 mg BID SOLOMON Administration Glucagon 1 mg 05/18/25 01:34 Glucagon Inj 1 Mg Vial IM Q15MIN PRN BG <70, and no IV access Heparin Sodium (Porcine) 5,000 unit 05/18/25 06:00 05/19/25 05:18 Heparin Sod Inj 5000 Unit/Ml Vial SC 06/01/25 05:59 5,000 unit Q8HR SOLOMON Administration Sodium Chloride 1,000 mls @ 125 mls/hr 05/18/25 01:30 05/19/25 09:42 Ns IV 06/17/25 01:29 125 mls/hr .Q8H SOLOMON Administration Piperacillin Sod/Tazobactam 100 mls @ 25 mls/hr 05/18/25 14:00 05/19/25 05:18 Sod 4.5 gm/ Sodium Chloride IV 05/25/25 13:59 25 mls/hr Q8HR SOLOMON Administration Protocol Vancomycin/Sodium Chloride 200 mls @ 120 mls/hr 05/19/25 14:00 Vancomycin/Ns 1 Gm Ivpb IV 05/26/25 13:59 Q8HR [facility] Insulin Degludec 12 unit 05/19/25 09:00 05/19/25 08:10 Insulin Degludec 5 Unit/0.05 Ml (Per 5 Units) [place] 06/18/25 08:59 12 unit QDAY [facility] Administration Insulin Human Lispro 0 unit 05/18/25 07:30 05/19/25 08:09 Insulin Lispro (Admelog) 1 Unit/0.01 Ml Unit SC 06/17/25 07:29 2 unit AC [facility] Administration Protocol Insulin Human Lispro 3 unit 05/19/25 11:30 Insulin Lispro (Admelog) 1 Unit/0.01 Ml Unit SC 06/18/25 11:[address] [facility] Morphine Sulfate 2 mg 05/18/25 01:40 05/18/25 08:17 Morphine Sulf Inj 4 Mg/Ml Vial IVP 05/23/25 01:39 2 mg Q6HR PRN Administration pain 4-8 Ondansetron HCl 4 mg 05/18/25 01:29 Ondansetron Inj 2 Mg/Ml Inj 2 Ml IVP 06/17/25 01:28 Q6H PRN NAUSEA OR VOMITING Protocol Pharmacy Consult 1 each 05/18/25 09:00 Vancomycin Pharmacy To Dose 1 Each Each IV 06/17/25 08:59 QDAY PRN PROTOCOL Thiamine HCl 100 mg 05/18/25 02:00 05/19/25 08:10 Thiamine 100 Mg Tablet PO 05/23/25 01:59 100 mg BID [facility] Administration Plan 54 y/o male with PMH polysubstance use disorder (IVDU, EtOH, opioids, methamphetamine, cocaine), HTN, uncontrolled T2DM and previous cellulitis/abscess who presents to the ED on 05/18 with an open sore on the posterior neck draining pus. Admitted for posterior neck cellulitis and hyperglycemia without acidosis. #Posterior neck cellulitis/abscess Hx uncontrolled T2DM, IVDU Patient was scratching neck when he noticed a bump, progressively got larger and starting draining pus over the course of 4 days Large area of erythema, edema, and skin discoloration that spans the length of the posterior neck with a central open wound draining foul-smelling pus on physical exam Afebrile, WBC 28.1 CT soft tissue neck w/o showed large area of soft tissue infection primarily in subcutaneous fatty tissue posterior neck with adjacent skin thickening, no fluid filled drainable abscess. Plan: - Gen surgery (Dr. Mohan) consulted, appreciate recs - Vancomycin IV, Zosyn IV for polymicrobial coverage given hx T2DM (uncontrolled), IVDU - Pending blood cx (neg after 24hr) - Wound care #Polysubstance use disorder Hx IVDU, EtOH, opioids, methamphetamine, cocaine, c/b multiple cellulitis/abscess at site of injection Went on ferguson with EtOH and methamephetamines recently, last use 4 days ago before admsision AOx4, pt was very honest about his polysubstance use Plan: - Encouraged cessation - CIWA with Librium - Thiamine 100 mg PO BID - Folate 1 mg PO BID #Uncontrolled T2DM, insulin dependent Glucose 523 -> 263, BHB 1.5. 1+ ketosis in UA. pH 7.37/CO2 54 on VBG (no acidosis). Does not meet criteria for HHS or DKA. K 4.2. Lactic WNL A1C 13.8 Home med: Metformin, insulin - has not taken meds in ~1 year Plan: - SSI ACHS - Degludec 12u qD + Lispro 3u pre-meals - Carb consistent diet - CTM K with daily CMP #Thrombocytosis, resolving Most likely reactive Plan: - CTM with daily CBC #Hx hypertension Plan: - CTM with tele #Hyponatremia, resolved Health Maintenance Dispo: Tele Diet: carb consistent VTE ppx: hepain subQ GI ppx: n/a Code status: full Case discussed with my attending Dr. Berrios, and senior resident, Dr. Luciano Ramsay MD PGY-1
[2025-05-19] MEDS: INSULIN LISPRO (AdmeLOG) 1 UNIT/0.01 ML UNIT 3 UNIT SC ×2 (11:51→17:29)
[2025-05-19 12:00] VITALS: BP 125/68; PULSE 100; PULSE 101; RESP 13; TEMP 36.2; O2SAT 97
[2025-05-19 14:29] LABS: HIV (1&2) Antibody Rapid Non-Reactive
[2025-05-19 14:49] LABS: Hepatitis A Antibody IgM Non Reactive (Non React); Hepatitis B Core Antibody IgM Non Reactive (Non React); Hepatitis B Surface Antigen Non Reactive (Non React); Hepatitis C Antibody Reactive (Non React)
[2025-05-19 15:06] VITALS: BMI 21.4
[2025-05-19 16:00] VITALS: BP 125/70; PULSE 108; PULSE 110; RESP 20; TEMP 36.8; O2SAT 98
[2025-05-19 20:00] VITALS: BP 96/63; PULSE 114; PULSE 115; RESP 15; TEMP 37.1; O2SAT 95
[2025-05-20] VITALS (13 sets, daily range): BP systolic 93–115; BP diastolic 54–73; PULSE 77–109; RESP 12–94; TEMP 36.2–37.1; O2SAT 92–100; BMI 21.5
[2025-05-20] MEDS: VANCOMYCIN/NS 1 GM IVPB 200 ML IV ×3 (05:59→21:43)
[2025-05-20] MEDS: PIPER/TAZO INJ 4.5 GM in SODIUM CHLORIDE 0.9% (POP) 100 ML IV ×3 (05:59→21:42)
[2025-05-20 06:13] LABS: Basophils # (Auto) 0.1 Thou/mm3 (0.0-0.2); Basophils % (Auto) 0 % (0-2.5); Eosinophils # (Auto) 0.6 Thou/mm3 (0.0-0.5); Eosinophils % (Auto) 3 % (0-10); Hematocrit 42.8 % (41.0-53.0); Hemoglobin 14.9 g/dL (13.5-16.0); Immature Granulocytes Auto 0.55 Thou/mm3 (0.00-0.00); Lymphocytes # (Auto) 1.1 Thou/mm3 (1.0-4.8); Lymphocytes % (Auto) 6 % (10-50); Mean Corpuscular HGB Conc 34.8 g/dl (31.0-37.0); Mean Corpuscular Hemoglobin 32.0 pg (25.0-35.0); Mean Corpuscular Volume 92 fL (80-100); Monocytes # (Auto) 0.8 Thou/mm3 (0.0-0.8); Monocytes % (Auto) 5 % (0-12); Neutrophils # (Auto) 14.7 Thou/mm3 (1.8-7.7); Neutrophils % (Auto) 83 % (37-80); Nucleated Red Blood Cell # 0.00 Thou/mm3 (0.00-0.00); Nucleated Red Blood Cell % 0 /100 WBC (0); Platelet Count 462 Thou/mm3 (140-440); RDW Standard Deviation 40.5 fL (35.1-43.9); Red Blood Count 4.65 Miln/mm3 (4.50-5.90); White Blood Count 17.8 Thou/mm3 (3.8-10.6)
[2025-05-20 06:51] LABS: Alanine Aminotransferase < 7 U/L (10-49); Albumin, Serum 3.1 gm/dL (3.5-5.0); Albumin/Globulin Ratio 1.2 (1.2-2.2); Alkaline Phosphatase 116 U/L (46-116); Anion Gap 10 (7-16); Aspartate Amino Transferase 10 U/L (0-34); BUN/Creatinine Ratio 10 Ratio (12-20); Bilirubin,Total 0.3 mg/dL (0.3-1.2); Blood Urea Nitrogen 8 mg/dL (9-23); Calcium 8.5 mg/dL (8.3-10.6); Calcium (Corrected) 9.2 mg/dL (8.5-10.1); Carbon Dioxide 29.8 mMol/L (20.0-31.0); Chloride 95 mMol/L (98-107); Creatinine (Component) 0.8 mg/dL (0.6-1.3); Estimated Creatinine Clearance 92.0 mL/min (>60); Globulin 2.5 gm/dL (2.3-3.5); Glucose 227 mg/dL (74-106); Magnesium 1.7 mg/dL (1.6-2.6); Osmolality,Calculated 275 (275-295); Phosphorous 3.3 mg/dL (2.4-5.1); Potassium 3.8 mMol/L (3.4-5.1); Sodium 135 mMol/L (136-145); Total Protein 5.6 gm/dL (5.7-8.2); eGFR > 60 See Note
[2025-05-20] MEDS: INSULIN LISPRO (AdmeLOG) 1 UNIT/0.01 ML UNIT SC (08:05)
[2025-05-20] MEDS: Magnesium Sulfate 4 GM Ivpb 4 GM/50 ML BAG IV (08:17)
--- NOTE | 2025-05-20 09:32 | PC.SS ---
Late note 05-19-25: SS met with patient regarding his d/c plan. Pt is alert/oriented. Pt was admitted for Neck Cellulites. Pt confirmed demographic and contact information is correct on facesheet. Pt resides with sister. Pt ambulates independently without assistance or DME. Pt is ok with all ADLs. Patient?s pharmacy of choice is [facility]. Patient's tox screen was positive for meth use. Pt was not feel well to engage in conversation with SS at this time. Pt will require community resource for drug use. Pt named his sister, Allison Barrios medical decision maker if he is unable. Patient?s choice is to return home upon d/c. Pt states he is diabetic and does not have glucometer. Pt state he is not on dialysis. Pt will require transportation home. Pt followed up with PCP year ago. D/C plan: Return home Next of Kin: Allison Barrios, sister, phone# [phone] PCP: [facility] in [place] Address: Correct on facesheet
[2025-05-20] MEDS: INSULIN DEGLUDEC 5 UNIT/0.05 ML (PER 5 UNITS) 18 UNIT SC (09:36)
[2025-05-20 11:57] LABS: Cocci Serology, IgM Negative (Negative)
--- NOTE | 2025-05-20 12:20 | PC.SS ---
SS met with pt to discuss positive tox screen for meth. Pt states he last used meth 3 days ago. Pt explained when he begins drinking he uses meth. Pt states he has quit using meth at this time. SS offered community resources to drug/alcohol programs and pt refused stating he is not using meth anymore.
--- NOTE | 2025-05-20 15:18 | ESPR_ITS ---
<Statement entered by Dominic Berrios MD - 05/24/25 08:36> I reviewed above note and agree with findings and plans. I have also personally examined the patient with medicine team and went over assessment and plan with medical team including internal combustion engineer and resident physician. <Statement entered by Steve Wolf MD - 05/20/25 16:03> Patient seen and assessed in hospital bed denies having any concerning symptoms at this time. On examination, patient's entire face, especially right side is edematous and moderately erythematous. Patient does not have concerning symptoms such as pain with eye movement but we will obtain a CT of the head with contrast after surgery completes procedure for abscess in the upper neck region. Patient continues to be on broad-spectrum IV antibiotics and will continue regimen. Patient's hepatitis panel is positive for hep C antibodies. Infectious disease has been consulted and we will await further recommendations. Will continue monitoring the patient for any acute changes. I have personally seen and examined the patient. I agree with the resident's assessment and plan as documented below. Steve Wolf DO PGY-2 Internal Medicine - [facility] Documentation for date of: 05/20/25 Subjective Subjective Interval history: Patient seen at bedside. No acute overnight events. Patient's vitals and labs were reviewed. On examination, there is diffuse facial swelling, more pronounced on the right side, with moderate erythema. No pain with eye movement or visual changes noted. CT head with contrast will be obtained following completion of the surgical procedure for the upper neck abscess to evaluate for possible extension of infection. Patient remains on broad-spectrum IV antibiotics; current regimen will be continued. Hepatitis panel returned positive for Hepatitis C antibodies. Infectious Disease has been consulted ? will follow their recommendations once available. Exam Vital Signs Temp Pulse Resp BP Pulse Ox O2 Del Method 97.9 F 81 19 109/54 L 98 Room Air 05/20/25 12:00 05/20/25 12:00 05/20/25 12:00 05/20/25 12:00 05/20/25 12:00 05/20/25 12:00 Narrative Exam General: No acute distress, well nourished, lying in left side Eye: Diffuse facial swelling, more pronounced on the right side, with moderate erythema. HENT: Normocephalic, atraumatic, normal hearing, moist oral mucosa Neck: Supple, non-tender, no JVD, no lymphadenopathy Lungs: Clear to auscultation bilaterally, non-labored respirations, symmetric chest rise, no use of accessory muscles Heart: Normal S1 and S2, no S3 or S4 appreciated. Normal rate and regular rhythm, no murmurs, rubs gallops. Abdomen: Soft, non-tender, non-distended, normal bowel sounds. Musculoskeletal: Limited ROM of neck 2/2 pain, otherwise full ROM Skin: Large area of erythema, edema, and skin discoloration that spans the length of the posterior neck with a central open wound draining foul-smelling pus. Well-healed scars on left shoulder and right arm. No foot wounds appreciated. Neurologic: Alert, awake and oriented x3. CN II-XII grossly intact. No focal neuro deficits. No signs of meningeal irritation noted. Psychiatric: Cooperative, appropriate mood and affect Objective Labs 05/20/25 05:15 05/20/25 05:15 Labs: Laboratory Results - last 24 hr 05/19/25 05/20/25 14:02 05:15 WBC 17.8 H D RBC 4.65 Hgb 14.9 Hct 42.8 MCV 92 MCH 32.0 MCHC 34.8 RDW Std Deviation 40.5 Plt Count 462 H Neut % (Auto) 83 H Lymph % (Auto) 6 L Petroleum % (Auto) 5 Eos % (Auto) 3 Baso % (Auto) 0 Neut # (Auto) 14.7 H Lymph # (Auto) 1.1 Petroleum # (Auto) 0.8 Eos # (Auto) 0.6 H Baso # (Auto) 0.1 Immature Gran # (Auto) 0.55 H Absolute Nucleated RBC 0.00 Immature Gran % 3 H Nucleated RBC % 0 Sodium 135 L Potassium 3.8 Chloride 95 L Carbon Dioxide 29.8 Anion Gap 10 BUN 8 L Creatinine 0.8 Estim Creat Clear Calc 92.0 eGFR > 60 BUN/Creatinine Ratio 10 L Glucose 227 H Calculated Osmolality 275 Calcium 8.5 Corrected Calcium 9.2 Phosphorus 3.3 Magnesium 1.7 Total Bilirubin 0.3 AST 10 ALT < 7 L Alkaline Phosphatase 116 Total Protein 5.6 L Albumin 3.1 L Globulin 2.5 Albumin/Globulin Ratio 1.2 Coccidioides IgM Ab Negative ABG Interpretation ABG results: 05/17/25 22:54 VBG pH 7.37 VBG pCO2 54 VBG pO2 27 VBG Base Excess 4 H Quality Measures Quality Measures none Assessment & Plan Assessment Current Active Medications: Generic Name Dose Route Start Last Admin Trade Name Eri PRN Reason Stop Dose Admin Acetaminophen 650 mg 05/18/25 01:29 05/18/25 13:51 Acetaminophen 325 Mg Tablet PO 06/17/25 01:28 650 mg Q6H PRN Administration Fever >100.3 Acetaminophen 650 mg 05/18/25 01:29 05/18/25 03:19 Acetaminophen 325 Mg Tablet PO 06/17/25 01:28 650 mg Q6H PRN Administration PAIN SCALE 1-3 (mild Dextrose 25 ml 05/18/25 01:34 Dextrose 50%-Water Inj 50 Ml Syringe IV 06/17/25 01:33 Q15MIN PRN BG 50-70 responsive npo pt Dextrose 50 ml 05/18/25 01:34 Dextrose 50%-Water Inj 50 Ml Syringe IV 06/17/25 01:33 Q15MIN PRN BG <50 OR BG <70 & pt unresponsive Docusate Sodium 100 mg 05/18/25 02:27 Docusate Sod 100 Mg Capsule PO 06/17/25 02:26 QDAY PRN CONSTIPATION Protocol Folic Acid 1 mg 05/18/25 02:00 05/20/25 13:07 Folic Acid 1 Mg Tablet PO 05/23/25 01:59 Not Given BID SOLOMON Glucagon 1 mg 05/18/25 01:34 Glucagon Inj 1 Mg Vial IM Q15MIN PRN BG <70, and no IV access Heparin Sodium (Porcine) 5,000 unit 05/18/25 06:00 05/20/25 06:01 Heparin Sod Inj 5000 Unit/Ml Vial SC 06/01/25 05:59 Not Given Q8HR [facility] Piperacillin Sod/Tazobactam 100 mls @ 25 mls/hr 05/18/25 14:00 05/20/25 13:19 Sod 4.5 gm/ Sodium Chloride IV 05/25/25 13:59 25 mls/hr Q8HR [facility] Administration Protocol Vancomycin/Sodium Chloride 200 mls @ 120 mls/hr 05/19/25 14:00 05/20/25 13:20 Vancomycin/Ns 1 Gm Ivpb IV 05/26/25 13:59 120 mls/hr Q8HR [facility] Administration Protocol Sodium Chloride 1,000 mls @ 100 mls/hr 05/20/25 13:37 Ns IV 05/20/25 23:36 .Q10H ONE Insulin Degludec 18 unit 05/20/25 09:00 05/20/25 09:36 Insulin Degludec 5 Unit/0.05 Ml (Per 5 Units) [place] 06/19/25 08:59 18 unit QDAY [facility] Administration Insulin Human Lispro 0 unit 05/18/25 07:30 05/20/25 13:08 Insulin Lispro (Admelog) 1 Unit/0.01 Ml Unit SC 06/17/25 07:29 Not Given AC [facility] Protocol Insulin Human Lispro 4 unit 05/20/25 11:30 05/20/25 13:08 Insulin Lispro (Admelog) 1 Unit/0.01 Ml Unit SC 06/19/25 11:29 Not Given AC [facility] Morphine Sulfate 2 mg 05/18/25 01:40 05/18/25 08:17 Morphine Sulf Inj 4 Mg/Ml Vial IVP 05/23/25 01:39 2 mg Q6HR PRN Administration pain 4-8 Ondansetron HCl 4 mg 05/18/25 01:29 Ondansetron Inj 2 Mg/Ml Inj 2 Ml IVP 06/17/25 01:28 Q6H PRN NAUSEA OR VOMITING Protocol Pharmacy Consult 1 each 05/18/25 09:00 Vancomycin Pharmacy To Dose 1 Each Each IV 06/17/25 08:59 QDAY PRN PROTOCOL Thiamine HCl 100 mg 05/18/25 02:00 05/20/25 13:07 Thiamine 100 Mg Tablet PO 05/23/25 01:59 Not Given BID [facility] Plan 54 y/o male with PMH polysubstance use disorder (IVDU, EtOH, opioids, methamphetamine, cocaine), HTN, uncontrolled T2DM and previous cellulitis/abscess who presents to the ED on 05/18 with an open sore on the posterior neck draining pus. Admitted for posterior neck cellulitis and hyperglycemia without acidosis. #Posterior neck cellulitis/abscess Hx uncontrolled T2DM, IVDU Patient was scratching neck when he noticed a bump, progressively got larger and starting draining pus over the course of 4 days Large area of erythema, edema, and skin discoloration that spans the length of the posterior neck with a central open wound draining foul-smelling pus on physical exam Afebrile, WBC 28.1 CT soft tissue neck w/o showed large area of soft tissue infection primarily in subcutaneous fatty tissue posterior neck with adjacent skin thickening, no fluid filled drainable abscess. Plan: - Gen surgery (Dr. Mohan) consulted, abcess drainage today - Vancomycin IV, Zosyn IV for polymicrobial coverage given hx T2DM (uncontrolled), IVDU - Wound care #Uncontrolled T2DM, insulin dependent Glucose ranging in 300s A1C 13.8 Home med: Metformin, insulin - has not taken meds in ~1 year Plan: - SSI ACHS - Increased Degludec 18u qD + Lispro 4u pre-meals - Carb consistent diet - CTM K with daily CMP #Hepatitis C, chronic Patient aware of Hepatitis C diagnosis and mentions he is in remession and follows #Polysubstance use disorder Hx IVDU, EtOH, opioids, methamphetamine, cocaine, c/b multiple cellulitis/abscess at site of injection Went on ferguson with EtOH and methamephetamines recently, last use 4 days ago before admsision AOx4, pt was very honest about his polysubstance use Plan: - Encouraged cessation - CIWA with Librium - Thiamine 100 mg PO BID - Folate 1 mg PO BID #Thrombocytosis, resolving Most likely reactive Plan: - CTM with daily CBC #Hx hypertension Plan: - CTM with tele #Hyponatremia, resolved Health Maintenance Dispo: Tele Diet: NPO now then carb consistent VTE ppx: hepain subQ GI ppx: n/a Code status: full Case discussed with my attending Dr. Berrios, and senior resident, Dr. Luciano Ramsay MD PGY-1
--- NOTE | 2025-05-20 16:00 | PD.SUROPNT ---
Date of Procedure 05/20/25 Pre Op Diagnosis Carbuncle back of the neck Post Op Diagnosis Same Procedure Incision and drainage and debridement of extensive subcutaneous tissue and fascia over the neck Findings Patient had multiple layers of infection with purulent material in each layer which was very thick and embedded in the tissue planes Procedure Description After the patient was brought to the operating room endotracheal anesthesia was given. Then he was placed in prone position. Then his neck was shaved and washed with Betadine solution. Timeout was performed. Then I made a transverse incision for about 6 to 7 cm in and drained some purulent material. But upon exploring the wound I found out that the patient had multiple layers of purulent material embedded in the various tissue planes. Therefore I debrided the skin subcutaneous tissue including the fascia. This was an extensive process involving extensive removal of the tissues. The wound was irrigated extensively and aspirated. Dressing was applied with wet-to-dry fluff and patient tolerated the procedure well Anesthesia GETA Pathology / specimen None Estimated Blood Loss 25 Surgeon Eran Kenny MD Surgical Staff Operation Date: 05/20/25 14:15 Case Staff Anesthesiologist: Roger Bahnea
--- NOTE | 2025-05-20 16:42 | SUR.PHASEI ---
1609: pt arrived to PACU via gurney drowsy but arouses to voice, breathing unlabored, dressing to posterior neck with pinkish red drainage-edges marked, VS stable, report from Dwayne CATHERINE and Dr Bahena. 1620: pt able to tolerate jello without difficulty swallowing or n/v. 1642: pt awake, alert, able to follow commands, breathing unlabored, dressing to posterior neck no changes in drainage, VS stable, report called to Amanda CATHERINE, pt transferred to room at this time.
[2025-05-20] MEDS: SODIUM CHLORIDE 0.9% 1000 ML 1,000 ML 100 ML IV (18:50)
[2025-05-20] MEDS: THIAMINE 100 MG TABLET PO (20:32)
[2025-05-20] MEDS: FOLIC ACID 1 MG TABLET PO (20:32)
[2025-05-20] MEDS: HEPARIN SOD INJ 5000 UNIT/ML VIAL SC (21:43)
[2025-05-21] VITALS: BP 94/61; PULSE 77; PULSE 78; RESP 15; TEMP 36.1; O2SAT 96
[2025-05-21 04:00] VITALS: BP 103/72; PULSE 80; PULSE 81; RESP 12; TEMP 36.3; O2SAT 97
[2025-05-21] MEDS: PIPER/TAZO INJ 4.5 GM in SODIUM CHLORIDE 0.9% (POP) 100 ML IV (05:23)
[2025-05-21] MEDS: VANCOMYCIN/NS 1 GM IVPB 200 ML IV (05:24)
[2025-05-21] MEDS: HEPARIN SOD INJ 5000 UNIT/ML VIAL SC ×2 (05:25→14:12)
[2025-05-21 06:12] LABS: Basophils # (Auto) 0.1 Thou/mm3 (0.0-0.2); Basophils % (Auto) 1 % (0-2.5); Eosinophils # (Auto) 0.6 Thou/mm3 (0.0-0.5); Eosinophils % (Auto) 6 % (0-10); Hematocrit 37.2 % (41.0-53.0); Hemoglobin 12.4 g/dL (13.5-16.0); Immature Granulocytes Auto 0.45 Thou/mm3 (0.00-0.00); Lymphocytes # (Auto) 1.1 Thou/mm3 (1.0-4.8); Lymphocytes % (Auto) 11 % (10-50); Mean Corpuscular HGB Conc 33.3 g/dl (31.0-37.0); Mean Corpuscular Hemoglobin 30.9 pg (25.0-35.0); Mean Corpuscular Volume 93 fL (80-100); Monocytes # (Auto) 0.8 Thou/mm3 (0.0-0.8); Monocytes % (Auto) 8 % (0-12); Neutrophils # (Auto) 6.7 Thou/mm3 (1.8-7.7); Neutrophils % (Auto) 69 % (37-80); Nucleated Red Blood Cell # 0.00 Thou/mm3 (0.00-0.00); Nucleated Red Blood Cell % 0 /100 WBC (0); Platelet Count 423 Thou/mm3 (140-440); RDW Standard Deviation 40.9 fL (35.1-43.9); Red Blood Count 4.01 Miln/mm3 (4.50-5.90); White Blood Count 9.8 Thou/mm3 (3.8-10.6)
[2025-05-21 06:38] LABS: Alanine Aminotransferase 13 U/L (10-49); Albumin, Serum 2.9 gm/dL (3.5-5.0); Albumin/Globulin Ratio 1.4 (1.2-2.2); Alkaline Phosphatase 118 U/L (46-116); Anion Gap 9 (7-16); Aspartate Amino Transferase 23 U/L (0-34); BUN/Creatinine Ratio 11 Ratio (12-20); Bilirubin,Total < 0.2 mg/dL (0.3-1.2); Blood Urea Nitrogen 9 mg/dL (9-23); Calcium 7.7 mg/dL (8.3-10.6); Calcium (Corrected) 8.6 mg/dL (8.5-10.1); Carbon Dioxide 28.2 mMol/L (20.0-31.0); Chloride 97 mMol/L (98-107); Creatinine (Component) 0.8 mg/dL (0.6-1.3); Estimated Creatinine Clearance 94.1 mL/min (>60); Globulin 2.1 gm/dL (2.3-3.5); Glucose 264 mg/dL (74-106); Magnesium 1.8 mg/dL (1.6-2.6); Osmolality,Calculated 275 (275-295); Phosphorous 3.7 mg/dL (2.4-5.1); Potassium 3.8 mMol/L (3.4-5.1); Sodium 134 mMol/L (136-145); Total Protein 5.0 gm/dL (5.7-8.2); Vancomycin,Trough 28.8 mcg/mL (5.0-10.0); eGFR > 60 See Note
[2025-05-21] MEDS: INSULIN LISPRO (AdmeLOG) 1 UNIT/0.01 ML UNIT SC ×3 (07:46→17:10)
[2025-05-21] MEDS: INSULIN LISPRO (AdmeLOG) 1 UNIT/0.01 ML UNIT 4 UNIT SC (07:46)
[2025-05-21 08:00] VITALS: BP 123/69; PULSE 80; PULSE 97; RESP 18; TEMP 36.9; O2SAT 100
[2025-05-21] MEDS: INSULIN DEGLUDEC 5 UNIT/0.05 ML (PER 5 UNITS) 18 UNIT SC (08:20)
[2025-05-21] MEDS: THIAMINE 100 MG TABLET PO (08:20)
[2025-05-21] MEDS: FOLIC ACID 1 MG TABLET PO (08:20)
[2025-05-21] MEDS: SODIUM CHLORIDE 0.9% 500 ML 500 ML 999 ML IV (08:38)
--- NOTE | 2025-05-21 09:03 | PC.SS ---
Follow up note: CT scan pending. On IV antibiotic. Pt will return home upon dc.
--- NOTE | 2025-05-21 09:16 | PD.IDPROG ---
Subjective Subjective Interval history: asked to see this 54 y/o uncontrolled diabetic with an a1c of >13 on 05/17 and neg cx for empiric rx of a carbuncle that was drained. gram stain neg. hep c pos noted. not treated in hospital as meds are non-formulary at all hospitals worldwide and starting rx in hospital is not a guarantee of rx and rx costs $60-90k for a course of rx and about 10% clear the virus on their own. Exam Vital Signs Temp Pulse Resp BP Pulse Ox O2 Del Method O2 Flow Rate 98.5 F 97 18 123/69 100 Room Air 2 05/21/25 08:00 05/21/25 08:00 05/21/25 08:00 05/21/25 08:00 05/21/25 08:00 05/21/25 08:00 05/20/25 16:19 Narrative Exam large posterior neck wound. packed. loquacious man. not ill appearing. prior rx for hep c noted. will get tests but if vl neg then others may not matter Objective - Internal Medicine Labs 05/21/25 05:42 05/21/25 05:42 Labs: Laboratory Results - last 24 hr 05/19/25 05/21/25 14:02 05:42 WBC 9.8 D RBC 4.01 L Hgb 12.4 L D Hct 37.2 L MCV 93 MCH 30.9 MCHC 33.3 RDW Std Deviation 40.9 Plt Count 423 D Neut % (Auto) 69 Lymph % (Auto) 11 [place] % (Auto) 8 Eos % (Auto) 6 Baso % (Auto) 1 Neut # (Auto) 6.7 Lymph # (Auto) 1.1 [place] # (Auto) 0.8 Eos # (Auto) 0.6 H Baso # (Auto) 0.1 Immature Gran # (Auto) 0.45 H Absolute Nucleated RBC 0.00 Immature Gran % 5 H Nucleated RBC % 0 Sodium 134 L Potassium 3.8 Chloride 97 L Carbon Dioxide 28.2 Anion Gap 9 BUN 9 Creatinine 0.8 Estim Creat Clear Calc 94.1 eGFR > 60 BUN/Creatinine Ratio 11 L Glucose 264 H Calculated Osmolality 275 Calcium 7.7 L Corrected Calcium 8.6 Phosphorus 3.7 Magnesium 1.8 Total Bilirubin < 0.2 L AST 23 ALT 13 Alkaline Phosphatase 118 H Total Protein 5.0 L Albumin 2.9 L Globulin 2.1 L Albumin/Globulin Ratio 1.4 Vancomycin Trough 28.8 H* Coccidioides IgM Ab Negative ABG Interpretation ABG results: 05/17/25 22:54 VBG pH 7.37 VBG pCO2 54 VBG pO2 27 VBG Base Excess 4 H Assessment & Plan A&P Narrative dm II carbuncle, neck with cellulitis and neg cx and stain 05/20 after admit 05/17 hep c pos. prior rx noted when incarcerated mh concerns control dm, dx is new try po keflex and doxy for the remainder of a week. can extend if desired changes made as recommended. hiv neg. noted may need to stay for rx of w/d from his home self rx likely needs mh f/u after release. he used to go to [facility] but stopped going and missed some appts I can not do f/u if released. unless hep c vl pos. see primary provider for skin and soft tissue eval and f/u. Time Spent With Patient Time: Total time spent is greater than 50% in coordination of care (as documented) at patient's floor/unit and/or counseling patient:
[2025-05-21] MEDS: MAGNESIUM OXIDE 400 MG TABLET PO (09:38)
[2025-05-21 10:51] LABS: Cocci Serology, IgG Negative (Negative)
[2025-05-21 10:52] LABS: Misc Send Out* See Sep Rpt
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
[2025-05-21 11:05] VITALS: BMI 23.1
[2025-05-21 11:28] LABS: AFP Non-Pregnant < 1.30 ng/mL (<8.10)
[2025-05-21] MEDS: INSULIN LISPRO (AdmeLOG) 1 UNIT/0.01 ML UNIT 6 UNIT SC ×2 (11:52→17:10)
[2025-05-21 12:00] VITALS: BP 97/54; PULSE 80; PULSE 99; RESP 13; TEMP 37.2; O2SAT 98
--- NOTE | 2025-05-21 13:22 | ESDS_ITS ---
<Statement entered by Dominic Berrios MD - 05/24/25 15:51> I reviewed above note and agree with findings and plans. I have also personally examined the patient with medicine team and went over assessment and plan with medical team including business management intern and resident physician. Planned Discharge Date 05/21/25 DS: Providers Provider Date of admission: 05/18/25 01:29 Primary care physician: Physician No Primary/Family Admitting Provider: Kit Reed MD Attending Provider on Admission: Dominic Berrios MD Consults: 05/18/25 00:33 Consult to General Surgery Stat Comment: neck cellulitis/abscess Consulting Provider: Eran Kenny 05/18/25 08:12 Referral Wound Care Stat Comment: 05/20/25 13:47 Consult to Infectious Diseases Routine Comment: Posterior neck abscess Consulting Provider: Gerber Romeo 05/21/25 10:27 Referral Registered Dietitian Routine Comment: 05/21/25 10:32 Referral OP Wound Healing Dept Routine Comment: Attending Provider on DC: Quintin Fang DO Discharging Provider: Quintin Fang DO DS: Diagnosis Problem List Completed Was Problem List Reviewed/Reconciled?: Yes Hospital Course Hospital Course Hospital course: Summary: Mr. Diez is a 54 y/o male with PMH polysubstance use disorder, HTN, T2DM and previous cellulitis/abscess who presents to the ED 05/18 with an open sore on the posterior neck draining pus. Patient received IV antibiotics and surgical incision,draininage, and debridement of his abscess at this posterior neck on 05/20/2025. Patient was discharged after his facial swelling and erythema has improved. ED course: Afebrile, HR 119. Labs significant for WBC 28.1, plt 536, Na 126 (Na corrected 133-136), Cl 87, glucose 523, alk phos 182. A1C 13.8. BHB 1.5. No acidosis, anion gap 10. UA 1+ protein, 4+ glucose, 1+ ketone. UDS + Methamphetamine. CXR unremarkable. CT soft tissue neck w/o showed large area of soft tissue infection primarily in subcutaneous fatty tissue posterior neck with adjacent skin thickening, no fluid filled drainable abscess. Blood cx pending. Given 1L NS, regular insulin 6U, cefepime 2g IV, vancomycin 2g IV in ED. Hospital Course: Upon admission, the WBC remains elevated at 28.7, so IV cefepime and vancomycin was given. The patient reports that a birdcage fell on his neck four days ago, resulting in an abscess. Imaging revealed a 4x7.5x4 cm enhancing abscess in the soft tissue of the posterior lower neck. Patient's hepatitis panel was positive for hepatitis C antibodies. Patient received incision, drainage, and debridement of his abscess at his posterior neck on 05/20/2025. The day of discharge, patient's facial swelling and erythema on right side has significantly improved. Instructions: Please take Keflex 500 mg by mouth 4 times a day and doxycycline 100 mg by mouth twice a day for 5 total days for cellulitis Please use insulin degludec 18 units per day and metformin 500 mg extended release tablet twice a day for poorly controlled type 2 diabetes Continue taking thiamine and folate vitamins and stop drinking alcohol completely Please follow-up with your PCP within 1 week of discharge or follow-up at the [facility] [address] [place], [place] [id number] Ask your PCP to refer you to an movie extra for better control of your diabetes Follow-up with your Psychiatrist to restart psychiatric medications If your symptoms worsen or if you develop chest pain, shortness of breath, fever/chills or severe headache - please come back to the ED immediately -Follow up at [facility] for your wound to the back of the neck. [address] [place] [address]. Call [phone] for appointment. -Wound care to the back of neck: apply warm compress for 10-15 minutes 3-4 times a day. Keep site clean and dry by washing with soap and water. Cover with dry gauze dressing daily and as needed for saturating. If active bleeding occurs, apply tight dressing and return to MD or ER. ? Notify primary doctor or return to Emergency Room if any of the following: ? Fever above 100.6? F. ? Increased pain ? Increase swelling ? Red streaks around your wound ? Drainage becomes foul smelling or changes color ? The wound is larger or deeper ? The wound looks dried out or dark ? Bleeding that does not stop with holding pressure7 #Posterior neck cellulitis/abscess #Uncontrolled T2DM, insulin dependent #Hepatitis C, chronic #Polysubstance use disorder #Thrombocytosis, resolving #Hx hypertension #Hyponatremia, resolved Assessment and plan discussed with my attending physician Dr. Yash Fang (PGY-1) - Internal medicine resident Status at Discharge Overall status at discharge: patient is progressing back to baseline Time Spent with Patient Time attestation: Total time spent providing and/or coordinating discharge services: Time spent: Greater than 30 minutes Exam Vital Signs Temp Pulse Resp BP Pulse Ox O2 Del Method O2 Flow Rate 98.9 F 99 13 97/54 L 98 Room Air 2 05/21/25 12:00 05/21/25 12:00 05/21/25 12:00 05/21/25 12:00 05/21/25 12:00 05/21/25 12:00 05/20/25 16:19 Narrative Exam General: No acute distress, well nourished, lying in left side Eye: minimal facial swelling and erythema on right side. HENT: Normocephalic, atraumatic, normal hearing, moist oral mucosa Neck: Supple, non-tender, no JVD, no lymphadenopathy Lungs: Clear to auscultation bilaterally, non-labored respirations, symmetric chest rise, no use of accessory muscles Heart: Normal S1 and S2, no S3 or S4 appreciated. Normal rate and regular rhythm, no murmurs, rubs gallops. Abdomen: Soft, non-tender, non-distended, normal bowel sounds. Musculoskeletal: Limited ROM of neck 2/2 pain, otherwise full ROM Skin: minimal facial swelling and erythema on right side. Well-healed scars on left shoulder and right arm. No foot wounds appreciated. Neurologic: Alert, awake and oriented x3. CN II-XII grossly intact. No focal neuro deficits. No signs of meningeal irritation noted. Psychiatric: Cooperative, appropriate mood and affect Discharge Plan Plan Patient Disposition: HOME (Self Care) Care Plan Goals: Please take Keflex 500 mg by mouth 4 times a day and doxycycline 100 mg by mouth twice a day for 5 total days for cellulitis Please use insulin degludec 18 units per day and metformin 500 mg extended release tablet twice a day for poorly controlled type 2 diabetes Continue taking thiamine and folate vitamins and stop drinking alcohol completely Please follow-up with your PCP within 1 week of discharge or follow-up at the [facility] [address] [place], [place] [phone] Ask your PCP to refer you to an movie extra for better control of your diabetes Follow-up with your Psychiatrist to restart psychiatric medications If your symptoms worsen or if you develop chest pain, shortness of breath, fever/chills or severe headache - please come back to the ED immediately -Follow up at [facility] for your wound to the back of the neck. [address] [facility]. Call [phone] for appointment. -Wound care to the back of neck: apply warm compress for 10-15 minutes 3-4 times a day. Keep site clean and dry by washing with soap and water. Cover with dry gauze dressing daily and as needed for saturating. If active bleeding occurs, apply tight dressing and return to MD or ER. ? Notify primary doctor or return to Emergency Room if any of the following: ? Fever above 100.6? F. ? Increased pain ? Increase swelling ? Red streaks around your wound ? Drainage becomes foul smelling or changes color ? The wound is larger or deeper ? The wound looks dried out or dark ? Bleeding that does not stop with holding pressure7 Prescriptions/Referrals Prescriptions/Med Rec: New cephalexin 500 mg capsule 500 mg PO QID 5 Days Qty: 20 0RF doxycycline hyclate 100 mg Tablet 100 mg PO BID 5 Days Qty: 10 0RF folic acid 1 mg Tablet 1 mg PO BID 30 Days Qty: 60 0RF thiamine mononitrate (vit B1) 100 mg Tablet 100 mg PO BID 30 Days Qty: 60 0RF (DME) pen needle, diabetic [Pen Needle] 29 gauge x 1/2 needle See Rx Instructions .Route Qty: 100 0RF Rx Instructions: As directed (DME) blood-glucose meter Kit See Rx Instructions .Route Qty: 1 0RF Rx Instructions: As directed (DME) Blood Glucose Test Strip See Rx Instructions .Route Qty: 50 0RF Rx Instructions: Make sure the meter is charged and ready to use. Wash your hands with soap and warm water, and dry well before each test. Massage or shake out your hand to get blood into your finger. Use a nicole to prick your finger. Squeezing from the base of the finger, gently place a small amount of blood onto the test strip. Place the strip in the meter. After a few seconds, the blood sugar reading will appear. Track and record your results. You may want to keep notes about anything that might have affected your reading. Dispose of the lancet and strip in a trash container. (DME) lancets Misc See Rx Instructions .Route Qty: 100 0RF Rx Instructions: To use a diabetic lancet, prepare your lancing device by inserting a new lancet and priming the device. Then, wash and dry your hands, prick the side of your fingertip, and squeeze a blood drop onto the test strip. Finally, safely dispose of the used lancet in a sharps container. (DME) FreeStyle Jolie 3 Plus Sensor Device See Rx Instructions .Route Qty: 2 0RF Rx Instructions: As directed (DME) FreeStyle Jolie 3 [place] Misc See Rx Instructions .Route Qty: 1 0RF Rx Instructions: As directed metformin [Fortamet] 500 mg tablet extended release 24hr 500 mg PO BID 30 Days Qty: 60 0RF insulin degludec 100 unit/mL (3 mL) insulin pen 18 unit subcut QDAY Qty: 15 0RF (DME) gauze bandage 4 X 8 bandage See Rx Instructions .Route Qty: 1 0RF Rx Instructions: As directed Discontinued aspirin 81 MG tablet 81 mg PO DAILY Qty: 0 Metformin Hcl 500 MG tablet 500 mg PO BID Qty: 0 naloxone 8 mg/actuation spray,non-aerosol 1 spray intranasal Q3M PRN (Reason: opioid overdose) Qty: 2 0RF Rx Instructions: spray 1 dose into ONE nostril; alternate nostrils w each dose until help arrives Referrals: No Primary/Family,Physician [Primary Care Provider] Patient/Caregiver Discharge Instructions Education Materials: Nutrition for Wound Healing, Discharge Instructions for Cellulitis, Changing Dressing Dc, Preventing Surgical Site Infections Print Language: Albanian Stand Alone Forms: Delores Award Info., Patient Portal Info Letter Discharge Order Discharge Orders: Discharge (Routine); Ordered 05/21/25 Ordered By: Steve Wolf Quality Discharge Quality Measures VTE prophylaxis
--- NOTE | 2025-05-21 14:48 | PC.SS ---
SS met with pt who states his sister will be providing transportation.
[2025-05-21 16:00] VITALS: BP 98/59; PULSE 96; PULSE 98; RESP 25; TEMP 36.8; O2SAT 99
--- NOTE | 2025-05-21 16:30 | PC.LAC ---
called pt. sister Allison and made her aware pt. i going home,stated she will come to pick him up after picking up his prescriptions from [facility].
[2025-05-21] MEDS: ACETAMINOPHEN 325 MG TABLET 650 MG PO (17:18)
[2025-05-21 19:10] VITALS: BP 94/58; PULSE 90; RESP 16; TEMP 36.4; O2SAT 96
[2025-05-27 11:20] LABS: HCV RNA, PCR <15 NOT DETECTED IU/mL
[2025-05-28 06:33] LABS: HCV Genotype, LiPA(R)* NOT DETECTED; HCV RNA, PCR Log IU <1.18 NOT DETECTED Log IU/mL
== END 2025-05-21 19:40 | disposition home or self-care (01) | DRG 364 ==
LOC: SERX 05-18 01:30 → SERHOLD 05-18 01:53 → S2NX 05-18 18:19
PROVIDERS: Internal Medicine Infectious Disease; Surgery; Admitting Provider Internal Medicine; Emergency Provider Emergency Medicine; Visit Provider Internal Medicine
PROC: 0J950ZX Drainage of Left Neck Subcutaneous Tissue and Fascia, Open Approach, Diagnostic (ICD-10-PCS; principal; 2025-05-20 14:00)
DX: L03.221 Cellulitis of neck (principal); F17.210 Nicotine dependence, cigarettes, uncomplicated; I10 Essential (primary) hypertension; F15.10 Other stimulant abuse, uncomplicated; E11.65 Type 2 diabetes mellitus with hyperglycemia; E87.1 Hypo-osmolality and hyponatremia; D75.839 Thrombocytosis, unspecified; L02.13 Carbuncle of neck; B18.2 Chronic viral hepatitis C; E88.89 Other specified metabolic disorders; L02.93 Carbuncle, unspecified; Z79.4 Long term (current) use of insulin; Z79.84 Long term (current) use of oral hypoglycemic drugs; Z91.199 Patient's noncompliance with other medical treatment and regimen due to unspecified reason
CPT/HCPCS: 36415; 70470; 70490; 70491; 71045; 80053; 80061; 80074; 80202; 80307; 80320; 81001; 81596; 82010; 82105; 82248; 82550; 82803; 83036; 83605; 83735; 84100; 84145; 84443; 85025; 85610; 85652; 85730; 86140; 86331; 86635; 86703; 87040; 87070; 87075; 87077; 87186; 87205; 87522; 87902; 96361; 96365; 96366; 96372; 96375; 99283; A4217; A4649; J0131; J0692; J1644; J1815; J2250; J2270; J2371; J2543; J2704; J3010; J3373; J3475; J3490; J7030; J7050; J7999; Q9967; A9270; G0480

== ENCOUNTER → 2025-06-02 | Outpatient (CLI) | payer MEDICAID, SELFPAY | END | disposition home or self-care (01) | PROVIDERS: PCP Family Medicine; Referring Provider Family Medicine; Visit Provider Student in an Organized Health Care Education/Training Program | DX: S11.80XA Unspecified open wound of other specified part of neck, initial encounter (principal); W22.8XXA Striking against or struck by other objects, initial encounter; F17.200 Nicotine dependence, unspecified, uncomplicated; E11.40 Type 2 diabetes mellitus with diabetic neuropathy, unspecified; F41.8 Other specified anxiety disorders; M06.9 Rheumatoid arthritis, unspecified; Z79.4 Long term (current) use of insulin; Z79.84 Long term (current) use of oral hypoglycemic drugs | CPT/HCPCS: 11043; 99212; A9270; G0463 ==